=== PATIENT | male | born 1965 | race Caucasian/White ===

== ENCOUNTER 2019-02-09 11:29 | Emergency (ER) | payer MEDICARE ==
[2019-02-09 11:43] VITALS: O2SAT 98
[2019-02-09] MEDS ORDERED: Norco 10/325 MG Tablet PO ONE (11:51)
--- NOTE | 2019-02-09 12:04 | ERPHSYRPT ---
- History of Present Illness Time Seen by Provider: 02/09/19 11:52 Source: patient Exam Limitations: clinical condition Patient Subjective Stated Complaint: Pt states "I stepped wrong last night and I fell off the porch and hurt my left ankle." Triage Nursing Assessment: Pt presented to the front sitting in a wheelchair. Pt alert and oriented X 3, skin pwd. Pt left ankle swollen and tender, no other injuries or complaints noted. Physician History: PATIENT WITH A HISTORY OF HYPERTENSION, TYPE 2 DIABETES STATES HE FELL OFF PORCH AND TWISTED HIS LEFT ANKLE ASSOCIATED WITH PAIN AND SWELLING OVER OUTER ASPECT OF ANKLE, PAIN UPON WEIGHT BEARING. DENIES BRUISING OR DEFORMITY. Method of Injury: fell, twisted Occurred: yesterday Quality: constant, stabbing, throbbing Severity of Pain-Max: moderate Severity of Pain-Current: moderate Lower Extremities Pain: ankle: left Modifying Factors: Improves With: movement Associated Symptoms: unable to bear weight Allergies/Adverse Reactions: No Known Drug Allergies Allergy (Verified 02/09/19 11:43) Home Medications: Amlodipine Besylate 5 mg [Norvasc 5 mg] 5 mg PO DAILY 03/08/12 [History] Insulin Glargine,Hum.rec.anlog [Lantus] 10 units SQ HS 03/08/12 [History] Quinapril HCl 40 mg PO DAILY 03/08/12 [History] Metoprolol Tartrate 25 mg PO DAILY 02/09/19 [History] Hx Tetanus, Diphtheria Vaccination/Date Given: Yes Hx Influenza Vaccination/Date Given: No Hx Pneumococcal Vaccination/Date Given: No Immunizations Up to Date: Yes - Review of Systems Constitutional: No Symptoms Musculoskeletal: Injury, Joint Pain, Joint Swelling Skin: No Symptoms Neurological: No Symptoms Psychological: No Symptoms Hematologic/Lymphatic: No Symptoms Immunological/Allergic: No Symptoms - Past Medical History Pertinent Past Medical History: Yes Neurological History: No Pertinent History, Stroke, TIA, Other ENT History: Other Cardiac History: Other Respiratory History: No Pertinent History Endocrine Medical History: Diabetes Type I Musculoskeletal History: Fractures GI Medical History: No Pertinent History History: No Pertinent History Psycho-Social History: No Pertinent History Male Reproductive Disorders: No Pertinent History Other Medical History: leaking heart valve - Past Surgical History Past Surgical History: Yes Neuro Surgical History: No Pertinent History Cardiac: No Pertinent History Respiratory: No Pertinent History Gastrointestinal: No Pertinent History Genitourinary: No Pertinent History Musculoskeletal: No Pertinent History Male Surgical History: No Pertinent History - Social History Smoking Status: Current every day smoker How long have you smoked: 40 years Exposure to second hand smoke: Yes Drug Use: none Patient Lives Alone: No - Nursing Vital Signs Nursing Vital Signs: Initial Vital Signs Temperature 98.6 F 02/09/19 11:39 Pulse Rate 108 H 02/09/19 11:39 Respiratory Rate 20 02/09/19 11:39 Blood Pressure 166/90 02/09/19 11:39 O2 Sat by Pulse Oximetry 98 02/09/19 11:39 Pain Scale Pain Intensity 8 - Physical Exam General Appearance: no apparent distress Ankle Exam: left ankle: limited range of motion, pain, soft tissue tenderness, swelling (MODERATE LATERAL MALLEOLUS, NO DEFORMITY OR ECCHYMOSIS), other (NO LAXITY OF ANKLE MORTISE) Foot Exam: left foot: other (LEFT PEDIS PULSE 2+) SpO2: 98 - Radiology Exams Left Ankle X-ray Interpretation: Interpreted by me, Negative (no evidence of ankle fracture , calcaneal fracture) Left Other X-ray Interpretation: Interpreted by me (LEFT CALCANEAL MINIMAL DISPLACED FRACTURE) Ordered Tests: Active Orders 24 hr Category Date Time Status ANKLE (3 VIEWS) Stat Exams 02/09/19 11:52 Taken OS CALCIS XRAY Stat Exams 02/09/19 12:43 Taken Medication Summary Discontinued Medications Generic Name Dose Route Start Last Admin Trade Name Igorq PRN Reason Stop Dose Admin Hydrocodone Bitart/Acetaminophen 1 tab 02/09/19 11:51 02/09/19 12:14 [place] 10/325 Mg Tablet PO 02/09/19 11:52 1 tab STAT ONE Administration Hydrocodone Bitart/Acetaminophen Confirm 02/09/19 12:12 [place] 10/325 Mg Tablet Administered 02/09/19 12:13 Dose 1 tab .ROUTE .STK-MED ONE - Progress Progress Note: NORCO 10/325 ORALLY 02/09/19 13:17 POSTERIOR 5" X 24" LEFT SHORT LEG SPLINT WITH MARKED HEEL PADDING Counseled pt/family regarding: diagnosis, need for follow-up, rad results - Departure Departure Disposition: Home Clinical Impression: Closed left calcaneal fracture Condition: Stable Critical Care Time: No Referrals: ELIAS NIEVES MD [Primary Care Provider] - Additional Instructions: FOLLOWUP WITH [facility] AT 8AM IN 2 DAYS FOR ORTHOPEDIC EVALUATION. AMBULATE USING CRUTCHES NONWEIGHT BEARING LEFT FOOT. TAKE COPY OF XRAY DISC TO CLINIC. NORCO 10/325 EVERY 6 HOURS FOR PAIN, DISPENSED 16 TABLETS. ELEVATE FOOT AND APPLY ICE BELOW HEEL AND ABOVE ANKLE. Prescriptions: Hydrocodone/APAP 10/325 mg [[place] 10/325 MG Tablet] 1 tab PO Q6H PRN PRN # 15 tablet MDD 4 PRN Reason: Pain
[2019-02-09] MEDS ORDERED: Norco 10/325 MG Tablet ONE (12:12)
[2019-02-09 12:56] VITALS: BP 154/88; PULSE 104
--- NOTE | 2019-02-09 23:54 | XRAY ---
Indication: Pain following fall. Comparison: None 2 views of the left calcaneus demonstrates nondisplaced comminuted fracture with incidental small plantar heel spur.
--- NOTE | 2019-02-09 23:56 | XRAY ---
Indication: Pain following fall. Comparison: None 3 views of the left ankle demonstrates nondisplaced comminuted fracture with incidental small plantar heel spur and lower leg vascular calcifications. No other bony, articular, or soft tissue abnormalities.
== END 2019-02-09 13:38 | disposition home or self-care (01) ==
LOC: ED 11:29
DX: S92.002A Unspecified fracture of left calcaneus, initial encounter for closed fracture (principal); X50.1XXA Overexertion from prolonged static or awkward postures, initial encounter; Y93.89 Activity, other specified; Y92.89 Other specified places as the place of occurrence of the external cause
CPT/HCPCS: 29515; 73610; 73650; 99284; A9270-GY

== ENCOUNTER 2020-11-30 10:08 | Inpatient (IN) | payer MEDICARE ==
[2020-11-30] MEDS ORDERED: Sodium Chloride 0.9% 1000 ML 1,000 ML IV STA (10:22)
[2020-11-30 10:40] LABS: Appearance SLIGHTLY CLOUDY (CLEAR); Bilirubin NEGATIVE (NEGATIVE); Blood SMALL Ery/ul (0-5); Glucose >=500 mg/dL (NEGATIVE); Ketones MODERATE (NEGATIVE); Leukocyte Esterase NEGATIVE (NEGATIVE); Mucus SLIGHT /HPF (NEGATIVE); Nitrite NEGATIVE (NEGATIVE); Protein,Urine Dip 100 (Negative); Specific Gravity 1.022 (1.005-1.025); Urobilinogen NEGATIVE mg/dL (0-1)
[2020-11-30 10:43] LABS: Bacteria RARE /HPF (NEGATIVE); Epithelial Cells RARE /HPF (FEW); RBC 0-2 /HPF (0-2)
[2020-11-30 11:00] LABS: Absolute Neutrophil Ct (ANC) 8.85 (1.4-6.9); BASOPHIL % 0.1 % (0.0-0.4); Basophil (Absolute #) 0.01 (0-0.4); Eosinophil % 0.2 % (0.00-5.0); Eosinophil (Absolute #) 0.02 (0-0.5); Lymphocyte (Absolute #) 1.17 (1.0-4.6); Lymphocytes % 10.6 % (24.0-44.0); Mean Cell Volume 91.1 fl (78-100); Mean Corpuscular Hemoglobin 31.7 pg (26-32); Mean Corpuscular Hgb Concent. 34.8 g/dl (32-36); Mean Platelet Volume 10.2 fl (7.5-11.0); Monocyte (Absolute #) 1.01 (0.0-1.3); Monocytes % 9.1 % (0.0-12.0); Platelet Count 233 K/mm3 (150-450); Red Blood Count 5.05 M/mm3 (4.1-5.6); Red Cell Distribution Width 12.6 % (11.5-14.0); White Blood Count 11.1 K/mm3 (4.0-10.5)
[2020-11-30 11:07] LABS: ALBUMIN 4.2 g/dL (3.5-5.0); ALKALINE PHOSPHATASE 105 U/L (38-126); ANION GAP 17.1 MEQ/L (5-15); BLOOD UREA NITROGEN 29 mg/dL (9-20); CHLORIDE 94 mmol/L (98-107); Calcium 9.7 mg/dL (8.4-10.2); Carbon Dioxide 29 mmol/L (22-30); Creatinine 1 0.92 mg/dL (0.66-1.25); EST GLOMERULAR FILTRATION RATE > 60.0 ML/MIN; Glucose 277 mg/dL (74-106); LIPASE 23 U/L (23-300); Potassium 4.8 mmol/L (3.5-5.1); SGOT/AST 31 U/L (17-59); SGPT/ALT 27 U/L (0-50); SODIUM 135 mmol/L (137-145); Total Protein 7.2 g/dL (6.3-8.2)
--- NOTE | 2020-11-30 11:30 | ERPHSYRPT ---
- History of Present Illness Time Seen by Provider: 11/30/20 10:20 Source: patient Exam Limitations: no limitations Patient Subjective Stated Complaint: PT states "I have been sick since last . I have been vomiting and had diarrhea horribly." Triage Nursing Assessment: Pt presented alert and oriented X 3, skin wpd Pt ambulates with an upright steady gait, able to speak in clear full sentences pt in no apparent respiratory distress. Physician History: Patient is a 55-year-old male presents to our ED for evaluation of feeling unwell. Patient complains of nausea vomiting and diarrhea. Occasional dry cough. Symptoms started 5 days ago. Symptoms have been constant. No fevers. No trauma. Emesis nonbloody nonbilious. Symptoms are mild to moderate in intensity. No specific worsening or improving factors. Patient states he is a type I diabetic. Patient denies chest pain. No shortness of breath. No rash. No sick contacts. Patient voices no other complaints concerns at this time. Timing/Duration: day(s) (5 days ago) Severity: moderate Modifying Factors: Improves With: nothing Associated Symptoms: cough, No abdominal pain, No shortness of breath, No diaphoresis, No chills, No chest pain, No headaches, No loss of appetite, No malaise, No syncope, No seizure Allergies/Adverse Reactions: No Known Drug Allergies Allergy (Verified 02/09/19 11:43) Home Medications: Amlodipine Besylate 5 mg [Norvasc 5 mg] 5 mg PO DAILY 03/08/12 [History] Insulin Glargine,Hum.rec.anlog [Lantus] 10 units SQ HS 03/08/12 [History] Metoprolol Tartrate 25 mg PO DAILY 02/09/19 [History] Lisinopril 5 mg [Zestril 5 MG] 2.5 mg PO DAILY 11/30/20 [History] Hx Tetanus, Diphtheria Vaccination/Date Given: No Hx Influenza Vaccination/Date Given: No Hx Pneumococcal Vaccination/Date Given: No Immunizations Up to Date: Yes Travel Risk - International Travel Have you traveled outside of the country in past 3 weeks: No - Coronavirus Screening Are you exhibiting any of the following symptoms?: No Close contact with a COVID-19 positive Pt in past 14-21 Days: No - Vaccine Status Have you recieved a Covid-19 vaccination: No - Review of Systems Constitutional: No Symptoms, No Fever, No Chills Eyes: No Symptoms Ears, Nose, & Throat: No Symptoms Respiratory: No Symptoms, No Cough, No Dyspnea Cardiac: No Symptoms, No Chest Pain, No Edema, No Syncope Abdominal/Gastrointestinal: No Symptoms, No Abdominal Pain, No Nausea, No Vomiting, No Diarrhea Genitourinary Symptoms: No Symptoms, No Dysuria Musculoskeletal: No Symptoms, No Back Pain, No Neck Pain Skin: No Symptoms, No Rash Neurological: No Symptoms, No Dizziness, No Focal Weakness, No Sensory Changes Psychological: No Symptoms Endocrine: No Symptoms Hematologic/Lymphatic: No Symptoms Immunological/Allergic: No Symptoms All Other Systems: Reviewed and Negative - Past Medical History Pertinent Past Medical History: Yes Neurological History: No Pertinent History, Stroke, TIA, Other ENT History: Other Cardiac History: Other Respiratory History: No Pertinent History Endocrine Medical History: Diabetes Type I Musculoskeletal History: Fractures GI Medical History: No Pertinent History History: No Pertinent History Psycho-Social History: No Pertinent History Male Reproductive Disorders: No Pertinent History Other Medical History: leaking heart valve - Past Surgical History Past Surgical History: Yes Neuro Surgical History: No Pertinent History Cardiac: No Pertinent History Respiratory: No Pertinent History Gastrointestinal: No Pertinent History Genitourinary: No Pertinent History Musculoskeletal: No Pertinent History Male Surgical History: No Pertinent History - Social History Smoking Status: Current every day smoker How long have you smoked: years Exposure to second hand smoke: Yes Drug Use: none Patient Lives Alone: No - Nursing Vital Signs Nursing Vital Signs: Initial Vital Signs Temperature 98.2 F 11/30/20 10:12 Pulse Rate 74 11/30/20 10:12 Respiratory Rate 20 11/30/20 10:12 Blood Pressure 183/102 11/30/20 10:12 O2 Sat by Pulse Oximetry 97 11/30/20 10:12 Pain Scale Pain Intensity 3 - Physical Exam General Appearance: no apparent distress, alert Eye Exam: PERRL/EOMI, eyes nml inspection Ears, Nose, Throat Exam: normal ENT inspection, TMs normal, pharynx normal, moist mucous membranes Neck Exam: normal inspection, non-tender, supple, full range of motion Respiratory Exam: normal breath sounds, lungs clear, No respiratory distress Cardiovascular Exam: regular rate/rhythm, normal heart sounds, normal peripheral pulses Gastrointestinal/Abdomen Exam: soft, normal bowel sounds, No tenderness, No mass Back Exam: normal inspection, normal range of motion, No CVA tenderness, No vertebral tenderness Extremity Exam: normal inspection, normal range of motion, pelvis stable Neurologic Exam: alert, oriented x 3, cooperative, normal mood/affect, nml cerebellar function, nml station & gait, sensation nml, No motor deficits Skin Exam: normal color, warm, dry, No rash Lymphatic Exam: No adenopathy SpO2 Interpretation: normal SpO2: 97 O2 Delivery: Room Air - Course Nursing assessment & vital signs reviewed: Yes EKG Interpreted by Me: RATE (82), Sinus Rhythm, NORMAL AXIS, NORMAL INTERVALS - CT Exams Abdomen/Pelvis CT Interpretation: Tele-radiologist Report (No cramps currently 2 mm left proximal ureteral calculus without hydronephrosis. Hydroureter. Additional nonobstructing left renal micro normal appendectomy. Remaining abdomen pelvis negative.) Ordered Tests: Medication Summary Generic Name Dose Route Start Last Admin Trade Name Freq PRN Reason Stop Dose Admin Acetaminophen 500 mg 12/01/20 00:09 Tylenol Extra Strength 500 Mg PO 12/31/20 00:08 Q4H PRN PRN PAIN Al Hydrox/Mg Hydrox/Simethicone 30 ml 12/02/20 13:30 12/02/20 17:56 Maalox Es 30 Ml Unit Dose PO 01/01/21 13:29 30 ml PC HELLEN Administration Amlodipine Besylate 5 mg 12/01/20 10:00 12/02/20 08:30 Norvasc 5 Mg PO 12/31/20 09:59 5 mg QAM HELLEN Administration Enoxaparin Sodium 30 mg 12/01/20 10:00 12/02/20 08:30 Enoxaparin Sodium SQ 12/31/20 09:59 30 mg DAILY HELLEN Administration Remdesivir 100 mg/ Sodium 100 mls @ 100 mls/hr 12/01/20 20:00 12/02/20 22:11 Chloride IV 12/04/20 20:59 100 mls/hr Q24H HELLEN Administration Sodium Chloride 1,000 mls @ 100 mls/hr 12/01/20 11:15 12/03/20 00:13 Sodium Chloride 0.9% 1000 Ml IV 12/31/20 11:14 100 mls/hr .Q10H HELLEN Administration Insulin Glargine 12 unit 12/01/20 22:00 12/02/20 22:10 Lantus Insulin SQ 12/31/20 21:59 12 unit HS HELLEN Administration Insulin Human Lispro 0 unit 12/01/20 07:15 12/02/20 13:04 Humalog SQ 12/31/20 07:14 2 unit UD PRN Administration Lisinopril 20 mg 12/03/20 10:00 Zestril 20 Mg PO 01/02/21 09:59 DAILY HELLEN Lorazepam 1 mg 12/02/20 17:48 12/02/20 22:10 Ativan 1 Mg PO 01/01/21 17:47 1 mg Q4HPRN PRN Administration nausea/anxiety Metoclopramide HCl 10 mg 12/01/20 11:30 12/02/20 22:10 Reglan 10 Mg PO 12/31/20 11:29 10 mg ACHS HELLEN Administration Metoprolol Tartrate 25 mg 12/01/20 10:00 12/02/20 08:29 Lopressor 25mg Tab PO 12/31/20 09:59 25 mg DAILY HELLEN Administration Morphine Sulfate 4 mg 12/01/20 00:10 12/01/20 18:29 Morphine Sulfate 4 Mg Inj IV 12/06/20 00:09 4 mg Q3H PRN PRN Administration PAIN Ondansetron HCl 4 mg 12/01/20 00:05 12/01/20 17:11 Zofran 4 Mg/2 Ml Vial IV 12/31/20 00:04 4 mg Q4H PRN PRN Administration NAUSEA/VOMITING Pantoprazole Sodium 40 mg 12/01/20 10:00 12/02/20 08:30 Protonix 40mg Tablet PO 12/31/20 09:59 40 mg DAILY HELLEN Administration Discontinued Medications Generic Name Dose Route Start Last Admin Trade Name Freq PRN Reason Stop Dose Admin Al Hydrox/Mg Hydrox/Simethicone Confirm 11/30/20 16:22 Maalox Es 30 Ml Unit Dose Administered 11/30/20 16:23 Dose 30 ml .ROUTE .STK-MED ONE Sodium Chloride 1,000 mls @ 999 mls/hr 11/30/20 10:22 11/30/20 14:25 Sodium Chloride 0.9% 1000 Ml IV 11/30/20 11:22 Infused .Q1H1M STA Infusion Sodium Chloride Confirm 11/30/20 12:17 Sodium Chloride 0.9% 1000 Ml Administered 11/30/20 12:18 Dose 1,000 mls @ ud .ROUTE .STK-MED ONE Sodium Chloride Confirm 11/30/20 20:35 Sodium Chloride 0.9% 250 Ml Administered 11/30/20 20:36 Dose 250 mls @ ud IV .STK-MED ONE Remdesivir 200 mg/ Sodium 250 mls @ 125 mls/hr 11/30/20 20:44 11/30/20 20:58 Chloride IV 11/30/20 22:43 125 mls/hr ONCE ONE Administration Sodium Chloride 1,000 mls @ 200 mls/hr 12/01/20 00:15 12/01/20 19:30 Sodium Chloride 0.9% 1000 Ml IV 12/31/20 00:14 Not Given .Q5H HELLEN Insulin Glargine 10 unit 12/01/20 22:00 Lantus Insulin SQ 12/31/20 21:59 HS HELLEN Lidocaine HCl Confirm 11/30/20 16:22 Xylocaine Hcl Viscous * Administered 11/30/20 16:23 Dose 15 ml .ROUTE .STK-MED ONE Lisinopril 2.5 mg 12/01/20 10:00 12/01/20 07:00 Zestril 5 Mg PO 12/31/20 09:59 2.5 mg DAILY HELLEN Administration Lisinopril 10 mg 12/01/20 12:00 12/02/20 08:30 Zestril 10 Mg PO 12/31/20 11:59 10 mg DAILY HELLEN Administration Lisinopril 10 mg 12/02/20 11:00 12/02/20 12:08 Zestril 10 Mg PO 12/02/20 11:01 10 mg 1100 HELLEN Administration Lorazepam 2 mg 12/01/20 00:05 12/02/20 12:51 Ativan 2 Mg/1 Ml Vial IV 12/31/20 00:04 2 mg Q4H PRN PRN Administration nausea or anxiety Magnesium Hydroxide 45 ml 11/30/20 16:01 11/30/20 16:23 Gi Cocktail 45 Ml (Maalox/Lidocaine) PO 11/30/20 16:02 45 ml STAT ONE Administration Metoprolol Tartrate Confirm 12/01/20 06:57 Lopressor 50 Mg Administered 12/01/20 06:58 Dose 50 mg .ROUTE .STK-MED ONE Morphine Sulfate 4 mg 11/30/20 23:24 Morphine Sulfate 4 Mg Inj IV 12/05/20 23:23 Q4H PRN PRN PAIN Ondansetron HCl 4 mg 11/30/20 14:54 11/30/20 14:58 Zofran 4 Mg/2 Ml Vial IV 11/30/20 14:55 4 mg STAT ONE Administration Ondansetron HCl Confirm 11/30/20 14:57 Zofran 4 Mg/2 Ml Vial Administered 11/30/20 14:58 Dose 4 mg .ROUTE .STK-MED ONE Ondansetron HCl 4 mg 11/30/20 23:24 11/30/20 23:36 Zofran 4 Mg/2 Ml Vial IV 12/30/20 23:23 4 mg Q6H PRN PRN Administration NAUSEA/VOMITING Ondansetron HCl Confirm 11/30/20 23:34 Zofran 4 Mg/2 Ml Vial Administered 11/30/20 23:35 Dose 4 mg .ROUTE .STK-MED ONE Pantoprazole Sodium 40 mg 11/30/20 16:01 11/30/20 16:24 Protonix 40 Mg Iv IV 11/30/20 16:02 40 mg STAT ONE Administration Pantoprazole Sodium Confirm 11/30/20 16:24 Protonix 40 Mg Iv Administered 11/30/20 16:25 Dose 40 mg IV .STK-MED ONE Pantoprazole Sodium 40 mg 12/01/20 10:00 Protonix 40mg Tablet PO 12/31/20 09:59 Q48H HELLEN Remdesivir Confirm 11/30/20 20:35 Remdesivir Administered 11/30/20 20:36 Dose 200 mg IV .STK-MED ONE Lab/Rad Data: Laboratory Result Diagrams 12/01/20 05:35 12/01/20 05:35 Laboratory Results 12/01/20 12/01/20 12/01/20 Range/Units 09:47 05:35 05:35 WBC (4.0-10.5) K/mm3 RBC (4.1-5.6) M/mm3 Hgb (12.5-18.0) gm/dl Hct (42-50) % MCV (78-100) fl MCH (26-32) pg MCHC (32-36) g/dl RDW (11.5-14.0) % Plt Count (150-450) K/mm3 MPV (7.5-11.0) fl Gran % (36.0-66.0) % Eos # (Auto) (0-0.5) Absolute Lymphs (auto) (1.0-4.6) Absolute Monos (auto) (0.0-1.3) Lymphocytes % (24.0-44.0) % Monocytes % (0.0-12.0) % Eosinophils % (0.00-5.0) % Basophils % (0.0-0.4) % Absolute Granulocytes (1.4-6.9) Basophils # (0-0.4) D-Dimer 1359 H* (215-500) ng/mL Sodium (137-145) mmol/L Potassium (3.5-5.1) mmol/L Chloride (98-107) mmol/L Carbon Dioxide (22-30) mmol/L Anion Gap (5-15) MEQ/L BUN (9-20) mg/dL Creatinine (0.66-1.25) mg/dL Estimated GFR ML/MIN Glucose (74-106) mg/dL POC Glucometer 179 H (74 to 106) mg/dL Hemoglobin A1c (4.5-6.0) % Calcium (8.4-10.2) mg/dL Magnesium 2.2 (1.6-2.3) mg/dL Total Bilirubin (0.2-1.3) mg/dL AST (17-59) U/L ALT (0-50) U/L Alkaline Phosphatase (38-126) U/L Troponin I (0.000-0.034) ng/mL Serum Total Protein (6.3-8.2) g/dL Albumin (3.5-5.0) g/dL Lipase (23-300) U/L Urine Color (YELLOW) Urine Appearance (CLEAR) Urine pH (5-6) Ur Specific [place] (1.005-1.025) Urine Protein (Negative) Urine Ketones (NEGATIVE) Urine Blood (0-5) Popeye/ul Urine Nitrite (NEGATIVE) Urine Bilirubin (NEGATIVE) Urine Urobilinogen (0-1) mg/dL Ur Leukocyte Esterase (NEGATIVE) Urine WBC (Auto) (0-5) /HPF Urine RBC (Auto) (0-2) /HPF U Epithel Cells (Auto) (FEW) /HPF Urine Bacteria (Auto) (NEGATIVE) /HPF Urine Mucus (Auto) (NEGATIVE) /HPF Urine Culture Reflexed (NO) Urine Glucose (NEGATIVE) mg/dL Influenza Type A Ag (NEGATIVE) Influenza Type B Ag (NEGATIVE) RSV (PCR) (Negative) SARS-CoV-2 (PCR) (NEGATIVE) 12/01/20 12/01/20 12/01/20 Range/Units 05:35 05:35 05:00 WBC 8.4 (4.0-10.5) K/mm3 RBC 4.95 (4.1-5.6) M/mm3 Hgb 15.4 (12.5-18.0) gm/dl Hct 45.8 (42-50) % MCV 92.5 (78-100) fl MCH 31.1 (26-32) pg MCHC 33.6 (32-36) g/dl RDW 12.6 (11.5-14.0) % Plt Count 196 (150-450) K/mm3 MPV 10.1 (7.5-11.0) fl Gran % 70.3 H (36.0-66.0) % Eos # (Auto) 0.01 (0-0.5) Absolute Lymphs (auto) 1.34 (1.0-4.6) Absolute Monos (auto) 1.13 (0.0-1.3) Lymphocytes % 16.0 L (24.0-44.0) % Monocytes % 13.5 H (0.0-12.0) % Eosinophils % 0.1 (0.00-5.0) % Basophils % 0.1 (0.0-0.4) % Absolute Granulocytes 5.91 (1.4-6.9) Basophils # 0.01 (0-0.4) D-Dimer (215-500) ng/mL Sodium 139 (137-145) mmol/L Potassium 4.1 (3.5-5.1) mmol/L Chloride 100 (98-107) mmol/L Carbon Dioxide 32 H (22-30) mmol/L Anion Gap 11.1 (5-15) MEQ/L BUN 22 H (9-20) mg/dL Creatinine 0.94 (0.66-1.25) mg/dL Estimated GFR > 60.0 ML/MIN Glucose 174 H (74-106) mg/dL POC Glucometer (74 to 106) mg/dL Hemoglobin A1c 11.07 H (4.5-6.0) % Calcium 9.1 (8.4-10.2) mg/dL Magnesium (1.6-2.3) mg/dL Total Bilirubin 0.40 (0.2-1.3) mg/dL AST 35 (17-59) U/L ALT 27 (0-50) U/L Alkaline Phosphatase 90 (38-126) U/L Troponin I (0.000-0.034) ng/mL Serum Total Protein 6.3 (6.3-8.2) g/dL Albumin 3.7 (3.5-5.0) g/dL Lipase (23-300) U/L Urine Color (YELLOW) Urine Appearance (CLEAR) Urine pH (5-6) Ur Specific [place] (1.005-1.025) Urine Protein (Negative) Urine Ketones (NEGATIVE) Urine Blood (0-5) Popeye/ul Urine Nitrite (NEGATIVE) Urine Bilirubin (NEGATIVE) Urine Urobilinogen (0-1) mg/dL Ur Leukocyte Esterase (NEGATIVE) Urine WBC (Auto) (0-5) /HPF Urine RBC (Auto) (0-2) /HPF U Epithel Cells (Auto) (FEW) /HPF Urine Bacteria (Auto) (NEGATIVE) /HPF Urine Mucus (Auto) (NEGATIVE) /HPF Urine Culture Reflexed (NO) Urine Glucose (NEGATIVE) mg/dL Influenza Type A Ag (NEGATIVE) Influenza Type B Ag (NEGATIVE) RSV (PCR) (Negative) SARS-CoV-2 (PCR) (NEGATIVE) 12/01/20 11/30/20 11/30/20 Range/Units 00:31 19:30 18:19 WBC (4.0-10.5) K/mm3 RBC (4.1-5.6) M/mm3 Hgb (12.5-18.0) gm/dl Hct (42-50) % MCV (78-100) fl MCH (26-32) pg MCHC (32-36) g/dl RDW (11.5-14.0) % Plt Count (150-450) K/mm3 MPV (7.5-11.0) fl Gran % (36.0-66.0) % Eos # (Auto) (0-0.5) Absolute Lymphs (auto) (1.0-4.6) Absolute Monos (auto) (0.0-1.3) Lymphocytes % (24.0-44.0) % Monocytes % (0.0-12.0) % Eosinophils % (0.00-5.0) % Basophils % (0.0-0.4) % Absolute Granulocytes (1.4-6.9) Basophils # (0-0.4) D-Dimer (215-500) ng/mL Sodium (137-145) mmol/L Potassium (3.5-5.1) mmol/L Chloride (98-107) mmol/L Carbon Dioxide (22-30) mmol/L Anion Gap (5-15) MEQ/L BUN (9-20) mg/dL Creatinine (0.66-1.25) mg/dL Estimated GFR ML/MIN Glucose (74-106) mg/dL POC Glucometer 209 H (74 to 106) mg/dL Hemoglobin A1c (4.5-6.0) % Calcium (8.4-10.2) mg/dL Magnesium (1.6-2.3) mg/dL Total Bilirubin (0.2-1.3) mg/dL AST (17-59) U/L ALT (0-50) U/L Alkaline Phosphatase (38-126) U/L Troponin I < 0.012 (0.000-0.034) ng/mL Serum Total Protein (6.3-8.2) g/dL Albumin (3.5-5.0) g/dL Lipase (23-300) U/L Urine Color (YELLOW) Urine Appearance (CLEAR) Urine pH (5-6) Ur Specific [place] (1.005-1.025) Urine Protein (Negative) Urine Ketones (NEGATIVE) Urine Blood (0-5) Popeye/ul Urine Nitrite (NEGATIVE) Urine Bilirubin (NEGATIVE) Urine Urobilinogen (0-1) mg/dL Ur Leukocyte Esterase (NEGATIVE) Urine WBC (Auto) (0-5) /HPF Urine RBC (Auto) (0-2) /HPF U Epithel Cells (Auto) (FEW) /HPF Urine Bacteria (Auto) (NEGATIVE) /HPF Urine Mucus (Auto) (NEGATIVE) /HPF Urine Culture Reflexed (NO) Urine Glucose (NEGATIVE) mg/dL Influenza Type A Ag NEGATIVE (NEGATIVE) Influenza Type B Ag NEGATIVE (NEGATIVE) RSV (PCR) NEGATIVE (Negative) SARS-CoV-2 (PCR) POSITIVE A (NEGATIVE) 11/30/20 11/30/20 11/30/20 Range/Units 16:40 13:10 10:45 WBC (4.0-10.5) K/mm3 RBC (4.1-5.6) M/mm3 Hgb (12.5-18.0) gm/dl Hct (42-50) % MCV (78-100) fl MCH (26-32) pg MCHC (32-36) g/dl RDW (11.5-14.0) % Plt Count (150-450) K/mm3 MPV (7.5-11.0) fl Gran % (36.0-66.0) % Eos # (Auto) (0-0.5) Absolute Lymphs (auto) (1.0-4.6) Absolute Monos (auto) (0.0-1.3) Lymphocytes % (24.0-44.0) % Monocytes % (0.0-12.0) % Eosinophils % (0.00-5.0) % Basophils % (0.0-0.4) % Absolute Granulocytes (1.4-6.9) Basophils # (0-0.4) D-Dimer (215-500) ng/mL Sodium (137-145) mmol/L Potassium (3.5-5.1) mmol/L Chloride (98-107) mmol/L Carbon Dioxide (22-30) mmol/L Anion Gap (5-15) MEQ/L BUN (9-20) mg/dL Creatinine (0.66-1.25) mg/dL Estimated GFR ML/MIN Glucose (74-106) mg/dL POC Glucometer (74 to 106) mg/dL Hemoglobin A1c (4.5-6.0) % Calcium (8.4-10.2) mg/dL Magnesium (1.6-2.3) mg/dL Total Bilirubin (0.2-1.3) mg/dL AST (17-59) U/L ALT (0-50) U/L Alkaline Phosphatase (38-126) U/L Troponin I < 0.012 < 0.012 (0.000-0.034) ng/mL Serum Total Protein (6.3-8.2) g/dL Albumin (3.5-5.0) g/dL Lipase (23-300) U/L Urine Color (YELLOW) Urine Appearance (CLEAR) Urine pH (5-6) Ur Specific [place] (1.005-1.025) Urine Protein (Negative) Urine Ketones (NEGATIVE) Urine Blood (0-5) Popeye/ul Urine Nitrite (NEGATIVE) Urine Bilirubin (NEGATIVE) Urine Urobilinogen (0-1) mg/dL Ur Leukocyte Esterase (NEGATIVE) Urine WBC (Auto) (0-5) /HPF Urine RBC (Auto) (0-2) /HPF U Epithel Cells (Auto) (FEW) /HPF Urine Bacteria (Auto) (NEGATIVE) /HPF Urine Mucus (Auto) (NEGATIVE) /HPF Urine Culture Reflexed (NO) Urine Glucose (NEGATIVE) mg/dL Influenza Type A Ag NEGATIVE (NEGATIVE) Influenza Type B Ag NEGATIVE (NEGATIVE) RSV (PCR) (Negative) SARS-CoV-2 (PCR) (NEGATIVE) 11/30/20 11/30/20 11/30/20 Range/Units 10:45 10:45 10:45 WBC 11.1 H (4.0-10.5) K/mm3 RBC 5.05 (4.1-5.6) M/mm3 Hgb 16.0 (12.5-18.0) gm/dl Hct 46.0 (42-50) % MCV 91.1 (78-100) fl MCH 31.7 (26-32) pg MCHC 34.8 (32-36) g/dl RDW 12.6 (11.5-14.0) % Plt Count 233 (150-450) K/mm3 MPV 10.2 (7.5-11.0) fl Gran % 80.0 H (36.0-66.0) % Eos # (Auto) 0.02 (0-0.5) Absolute Lymphs (auto) 1.17 (1.0-4.6) Absolute Monos (auto) 1.01 (0.0-1.3) Lymphocytes % 10.6 L (24.0-44.0) % Monocytes % 9.1 (0.0-12.0) % Eosinophils % 0.2 (0.00-5.0) % Basophils % 0.1 (0.0-0.4) % Absolute Granulocytes 8.85 H (1.4-6.9) Basophils # 0.01 (0-0.4) D-Dimer (215-500) ng/mL Sodium 135 L (137-145) mmol/L Potassium 4.8 (3.5-5.1) mmol/L Chloride 94 L (98-107) mmol/L Carbon Dioxide 29 (22-30) mmol/L Anion Gap 17.1 H (5-15) MEQ/L BUN 29 H (9-20) mg/dL Creatinine 0.92 (0.66-1.25) mg/dL Estimated GFR > 60.0 ML/MIN Glucose 277 H (74-106) mg/dL POC Glucometer (74 to 106) mg/dL Hemoglobin A1c (4.5-6.0) % Calcium 9.7 (8.4-10.2) mg/dL Magnesium (1.6-2.3) mg/dL Total Bilirubin 0.60 (0.2-1.3) mg/dL AST 31 (17-59) U/L ALT 27 (0-50) U/L Alkaline Phosphatase 105 (38-126) U/L Troponin I < 0.012 (0.000-0.034) ng/mL Serum Total Protein 7.2 (6.3-8.2) g/dL Albumin 4.2 (3.5-5.0) g/dL Lipase 23 (23-300) U/L Urine Color (YELLOW) Urine Appearance (CLEAR) Urine pH (5-6) Ur Specific [place] (1.005-1.025) Urine Protein (Negative) Urine Ketones (NEGATIVE) Urine Blood (0-5) Popeye/ul Urine Nitrite (NEGATIVE) Urine Bilirubin (NEGATIVE) Urine Urobilinogen (0-1) mg/dL Ur Leukocyte Esterase (NEGATIVE) Urine WBC (Auto) (0-5) /HPF Urine RBC (Auto) (0-2) /HPF U Epithel Cells (Auto) (FEW) /HPF Urine Bacteria (Auto) (NEGATIVE) /HPF Urine Mucus (Auto) (NEGATIVE) /HPF Urine Culture Reflexed (NO) Urine Glucose (NEGATIVE) mg/dL Influenza Type A Ag (NEGATIVE) Influenza Type B Ag (NEGATIVE) RSV (PCR) (Negative) SARS-CoV-2 (PCR) (NEGATIVE) 11/30/20 Range/Units 10:22 WBC (4.0-10.5) K/mm3 RBC (4.1-5.6) M/mm3 Hgb (12.5-18.0) gm/dl Hct (42-50) % MCV (78-100) fl MCH (26-32) pg MCHC (32-36) g/dl RDW (11.5-14.0) % Plt Count (150-450) K/mm3 MPV (7.5-11.0) fl Gran % (36.0-66.0) % Eos # (Auto) (0-0.5) Absolute Lymphs (auto) (1.0-4.6) Absolute Monos (auto) (0.0-1.3) Lymphocytes % (24.0-44.0) % Monocytes % (0.0-12.0) % Eosinophils % (0.00-5.0) % Basophils % (0.0-0.4) % Absolute Granulocytes (1.4-6.9) Basophils # (0-0.4) D-Dimer (215-500) ng/mL Sodium (137-145) mmol/L Potassium (3.5-5.1) mmol/L Chloride (98-107) mmol/L Carbon Dioxide (22-30) mmol/L Anion Gap (5-15) MEQ/L BUN (9-20) mg/dL Creatinine (0.66-1.25) mg/dL Estimated GFR ML/MIN Glucose (74-106) mg/dL POC Glucometer (74 to 106) mg/dL Hemoglobin A1c (4.5-6.0) % Calcium (8.4-10.2) mg/dL Magnesium (1.6-2.3) mg/dL Total Bilirubin (0.2-1.3) mg/dL AST (17-59) U/L ALT (0-50) U/L Alkaline Phosphatase (38-126) U/L Troponin I (0.000-0.034) ng/mL Serum Total Protein (6.3-8.2) g/dL Albumin (3.5-5.0) g/dL Lipase (23-300) U/L Urine Color YELLOW (YELLOW) Urine Appearance SLIGHTLY CLOUDY (CLEAR) Urine pH 5.0 (5-6) Ur Specific [place] 1.022 (1.005-1.025) Urine Protein 100 (Negative) Urine Ketones MODERATE (NEGATIVE) Urine Blood SMALL (0-5) Pope[place]/ul Urine Nitrite NEGATIVE (NEGATIVE) Urine Bilirubin NEGATIVE (NEGATIVE) Urine Urobilinogen NEGATIVE (0-1) mg/dL Ur Leukocyte Esterase NEGATIVE (NEGATIVE) Urine WBC (Auto) 3-5 (0-5) /HPF Urine RBC (Auto) 0-2 (0-2) /HPF U Epithel Cells (Auto) RARE (FEW) /HPF Urine Bacteria (Auto) RARE (NEGATIVE) /HPF Urine Mucus (Auto) SLIGHT (NEGATIVE) /HPF Urine Culture Reflexed NO (NO) Urine Glucose >=500 (NEGATIVE) mg/dL Influenza Type A Ag (NEGATIVE) Influenza Type B Ag (NEGATIVE) RSV (PCR) (Negative) SARS-CoV-2 (PCR) (NEGATIVE) - Progress Progress: improved Progress Note: Patient with nausea vomiting diarrhea. Covid positive. Patient will be admitted to Dr. Rivera for further evaluation and treatment. Patient be admitted to the Covid unit. Dr. Mckeon reevaluated patient at the bedside. Plan of care discussed with patient. He agrees to admission [facility] for further evaluation and treatment. 11/30/20 19:57 12/03/20 07:20 Discussed with DrJoy: Other (Luke) Will see patient in: hospital (observation) Counseled pt/family regarding: lab results, diagnosis, rad results - Departure Departure Disposition: Home Clinical Impression: Nausea and vomiting, Dehydration, High anion gap metabolic acidosis, Hypergl ycemia, Proteinuria, COVID-19, Glucosuria, Ureteral calculus, left Condition: Stable Critical Care Time: No
[2020-11-30 11:35] LABS: INFLUENZA A NEGATIVE (NEGATIVE); INFLUENZA B NEGATIVE (NEGATIVE)
[2020-11-30] MEDS ORDERED: Sodium Chloride 0.9% 1000 ML 1,000 ML ONE (12:17)
[2020-11-30] MEDS ORDERED: Zofran 4 MG/2 ML VIAL IV ONE (14:54)
[2020-11-30] MEDS ORDERED: Zofran 4 MG/2 ML VIAL ONE ×2 (14:57→23:34)
[2020-11-30] MEDS ORDERED: GI COCKTAIL 45 ML (Maalox/Lidocaine) PO ONE (16:01)
[2020-11-30] MEDS ORDERED: PROTONIX 40 MG IV IV ONE ×2 (16:01→16:24)
[2020-11-30] MEDS ORDERED: XYLOCAINE HCl Viscous ONE (16:22)
[2020-11-30] MEDS ORDERED: MAALOX ES 30 ML UNIT DOSE ONE (16:22)
[2020-11-30 19:29] LABS: INFLUENZA A NEGATIVE (NEGATIVE); INFLUENZA B NEGATIVE (NEGATIVE); RESPIRATORY SYNCTIAL VIRUS NEGATIVE (Negative)
[2020-11-30] MEDS ORDERED: Sodium Chloride 0.9% 250 ML 250 ML IV ONE (20:35)
[2020-11-30] MEDS ORDERED: REMDESIVIR IV ONE (20:35)
[2020-11-30] MEDS ORDERED: REMDESIVIR 200 MG in Sodium Chloride 0.9% 250 ML 250 ML IV ONE (20:44)
[2020-11-30] MEDS ORDERED: Sodium Chloride 0.9% 1000 ML 1,000 ML IV SCH (23:24)
[2020-11-30] MEDS ORDERED: MORPHINE SULFATE 4 MG INJ IV PRN (23:24)
[2020-11-30] MEDS ORDERED: Zofran 4 MG/2 ML VIAL IV PRN (23:24)
[2020-12-01] MEDS ORDERED: TYLENOL EXTRA STRENGTH 500 MG PO PRN (00:09)
[2020-12-01] MEDS: Sodium Chloride 0.9% 1000 ML 1,000 ML IV SCH ×5 (00:50→22:09)
[2020-12-01] MEDS: Ativan 2 MG/1 ML VIAL IV PRN ×2 (00:50→21:56)
[2020-12-01 06:03] LABS: Absolute Neutrophil Ct (ANC) 5.91 (1.4-6.9); BASOPHIL % 0.1 % (0.0-0.4); Basophil (Absolute #) 0.01 (0-0.4); Eosinophil % 0.1 % (0.00-5.0); Eosinophil (Absolute #) 0.01 (0-0.5); Hematocrit 45.8 % (42-50); Hemoglobin 15.4 gm/dl (12.5-18.0); Lymphocyte (Absolute #) 1.34 (1.0-4.6); Mean Cell Volume 92.5 fl (78-100); Mean Corpuscular Hemoglobin 31.1 pg (26-32); Mean Corpuscular Hgb Concent. 33.6 g/dl (32-36); Mean Platelet Volume 10.1 fl (7.5-11.0); Monocyte (Absolute #) 1.13 (0.0-1.3); Monocytes % 13.5 % (0.0-12.0); Neutrophil % 70.3 % (36.0-66.0); Platelet Count 196 K/mm3 (150-450); Red Blood Count 4.95 M/mm3 (4.1-5.6); Red Cell Distribution Width 12.6 % (11.5-14.0); White Blood Count 8.4 K/mm3 (4.0-10.5)
[2020-12-01 06:34] LABS: ALBUMIN 3.7 g/dL (3.5-5.0); ALKALINE PHOSPHATASE 90 U/L (38-126); ANION GAP 11.1 MEQ/L (5-15); BLOOD UREA NITROGEN 22 mg/dL (9-20); CHLORIDE 100 mmol/L (98-107); Calcium 9.1 mg/dL (8.4-10.2); Carbon Dioxide 32 mmol/L (22-30); Creatinine 1 0.94 mg/dL (0.66-1.25); EST GLOMERULAR FILTRATION RATE > 60.0 ML/MIN; Glucose 174 mg/dL (74-106); Potassium 4.1 mmol/L (3.5-5.1); SGOT/AST 35 U/L (17-59); SGPT/ALT 27 U/L (0-50); SODIUM 139 mmol/L (137-145); Total Protein 6.3 g/dL (6.3-8.2)
[2020-12-01] MEDS ORDERED: HUMALOG SQ PRN (06:46)
[2020-12-01] MEDS ORDERED: Lopressor 50 MG ONE (06:57)
[2020-12-01] MEDS: Lopressor 25MG Tab PO SCH (06:59)
[2020-12-01] MEDS: NORVASC 5 MG PO SCH (07:00)
[2020-12-01] MEDS: Zofran 4 MG/2 ML VIAL IV PRN ×2 (08:24→17:11)
--- NOTE | 2020-12-01 09:00 | XRAY ---
Indication: Abdomen pain, nausea, and vomiting. Multiple contiguous axial images obtained through the abdomen and pelvis using 80 cc Isovue 370 contrast. Comparison: None Lung bases demonstrate tiny right middle lobe calcified granuloma. Also 9 mm and 4 mm left lower lobe noncalcified nodules possibly granulomatous as well. Mild bibasilar fibrosis/scarring. No infiltrate or effusion. Heart is not enlarged. Noncontrasted stomach and bowel loops appear nonobstructed. Normal appendix. No free fluid/air. Both kidneys enhance and excrete. Left kidney demonstrates a few nonobstructing micro-calculi, largest 3 mm inferiorly. Right upper kidney demonstrates 5 mm cortical cyst. 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 Gallbladder demonstrates tiny gallstones/gravel in the dependent portion. Tiny splenic calcified granulomas. Remaining liver, gallbladder, pancreas, spleen adrenal glands, kidneys, ureters, and bladder are unremarkable. Mild scattered aortoiliac calcifications. No AAA or pathologic retroperitoneal lymphadenopathy. Osseous structures intact. No ventral or inguinal hernias. Impression: 1. Nonobstructing left renal micro-calculi, tiny right renal cyst, and partial duplication of the right renal collecting system. 2. Tiny gallstones/gravel. Gallbladder sonogram may yield further information if clinically warranted. 3. Left lower lobe noncalcified pulmonary nodules. Findings possibly granulomatous as there is evidence for old granulomatous disease elsewhere.
[2020-12-01] MEDS: Protonix 40MG Tablet PO SCH (09:45)
[2020-12-01] MEDS: ENOXAPARIN SODIUM SQ SCH (09:45)
[2020-12-01] MEDS ORDERED: Protonix 40MG Tablet PO SCH (10:00)
[2020-12-01] MEDS ORDERED: Zestril 5 MG PO SCH (10:00)
[2020-12-01] MEDS: Reglan 10 MG PO SCH ×3 (11:31→21:54)
[2020-12-01] MEDS: Zestril 10 MG PO SCH (11:32)
--- NOTE | 2020-12-01 12:13 | XRAY ---
Indication: Short of breath. Positive Covid 19. Comparison: March 08, 2012. Portable chest remains clear again with incidental left lower lobe calcified granuloma. Heart and mediastinal structures within normal limits. Bony thorax intact again with mild osteopenia, minimal degenerative changes, old bilateral rib fractures, and old distal left clavicle fracture. Impression: Continued nonacute chest with chronic features.
[2020-12-01] MEDS: MORPHINE SULFATE 4 MG INJ IV PRN ×2 (13:52→18:29)
[2020-12-01] MEDS ORDERED: SODIUM CHLORIDE 0.9% IV SCH (19:48)
[2020-12-01] MEDS ORDERED: REMDESIVIR IV SCH (19:48)
[2020-12-01] MEDS: REMDESIVIR 100 MG in Sodium Chloride 0.9% 100 ML BAG 100 ML IV SCH (20:05)
[2020-12-01] MEDS: Lantus Insulin SQ SCH (21:54)
[2020-12-01] MEDS ORDERED: Lantus Insulin SQ SCH (22:00)
[2020-12-02] MEDS: Sodium Chloride 0.9% 1000 ML 1,000 ML IV SCH ×2 (03:55→13:53)
[2020-12-02 06:12] LABS: ANION GAP 9.9 MEQ/L (5-15); BLOOD UREA NITROGEN 15 mg/dL (9-20); CHLORIDE 101 mmol/L (98-107); Carbon Dioxide 30 mmol/L (22-30); Creatinine 1 0.81 mg/dL (0.66-1.25); EST GLOMERULAR FILTRATION RATE > 60.0 ML/MIN; SODIUM 137 mmol/L (137-145)
[2020-12-02] MEDS: Reglan 10 MG PO SCH ×4 (06:32→22:10)
[2020-12-02] MEDS: Lopressor 25MG Tab PO SCH (08:29)
[2020-12-02] MEDS: Zestril 10 MG PO SCH (08:30)
[2020-12-02] MEDS: NORVASC 5 MG PO SCH (08:30)
[2020-12-02] MEDS: Protonix 40MG Tablet PO SCH (08:30)
[2020-12-02] MEDS: ENOXAPARIN SODIUM SQ SCH (08:30)
[2020-12-02] MEDS ORDERED: Zestril 10 MG PO SCH (11:00)
--- NOTE | 2020-12-02 11:49 | HP ---
CHIEF COMPLAINT: Intractable vomiting. HISTORY OF PRESENT ILLNESS: A 55 year-old white male who has had vomiting for the last four or five days. He had a low grade fever, nonproductive cough and sometimes productive. Feels like stuff going up his swallowing pipe. He had diarrhea x1. 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 He is lightheaded on standing. He has a headache and hurts all over. He can taste food but he cannot hold anything down. He does not know of anybody with this. He has not been out of the country. He is a diabetes type I for 20 years. He denies any chest pain. He said burning in the chest. MEDICATIONS: Norvasc 5, Lantus 10 h.s., metoprolol 25, Zestril 5. ALLERGIES: NKDA. PAST MEDICAL HISTORY: Hypertension. REVIEW OF SYSTEMS: HEENT: No problems hearing or seeing. 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 CHEST: As above, short of breath on exertion. CVS: No exertional chest pain or palpitations. No heart problems. He has had hypertension several years. ABDOMEN: Continuous nausea, every time he puts something in his mouth he has to throw up. No hepatitis. CONSTITUTIONAL: No fever. No chills. Myalgia. NEUROLOGIC: The patient has had no stroke, transient ischemic attack. Loss of vision in his eye which is probably a bleed although we do not have records and he does not know. : The patient has a small kidney stone and does not bother him. SOCIAL HISTORY: He lives by himself. Smokes a pack a day, quit one day ago. He does not drink. PHYSICAL EXAMINATION: The patient is alert, orientated, pleasant but sick. VITAL SIGNS: Temperature 98F, pulse 70, respirations 22, blood pressure 183/102. O2 saturation on room air 97%. HEENT: Decreased vision/blind in the right eye. NECK: Supple without adenopathy. CHEST: Clear. CVS: No murmurs or gallops. ABDOMEN: Tender all over, normal to decreased bowel sounds. EXTREMITIES: Decreased sensation over the feet, good pulses, good color. LAB DATA AND TESTS: On admission his troponins were normal. UA was normal. White count was 11, hemoglobin 16, PLT count 233,000. Potassium 4.8, creatinine 1.1, sodium 135. SARS-CoV-2 PCR test was positive. Liver enzymes were normal. Protein was normal. His D-dimer was elevated around 900. Chest x-ray was normal. 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 He takes insulin once a day. PLAN: The patient will be rehydrated, be started on some anti-reflux medication Prevacid, Remdesivir. Decadron will be avoided due to his GI symptoms and diabetes. His blood pressure medicine will probably have to be elevated so will increase his lisinopril. We discussed the need for visual follow up due to his decreased vision and diabetes. He is to continue his home medication of Norvasc 5, insulin 10 units h.s., lisinopril 5, metoprolol 25. PROGNOSIS: Fair.
[2020-12-02] MEDS: Ativan 2 MG/1 ML VIAL IV PRN (12:51)
[2020-12-02] MEDS: MAALOX ES 30 ML UNIT DOSE PO SCH ×2 (12:51→17:56)
[2020-12-02] MEDS: HUMALOG SQ PRN (13:04)
[2020-12-02] MEDS: Ativan 1 MG PO PRN ×2 (17:56→22:10)
[2020-12-02] MEDS: Lantus Insulin SQ SCH (22:10)
[2020-12-02] MEDS: REMDESIVIR 100 MG in Sodium Chloride 0.9% 100 ML BAG 100 ML IV SCH (22:11)
[2020-12-03] MEDS: Sodium Chloride 0.9% 1000 ML 1,000 ML IV SCH ×3 (00:13→18:06)
[2020-12-03] MEDS: Reglan 10 MG PO SCH ×5 (07:39→20:48)
[2020-12-03] MEDS: MAALOX ES 30 ML UNIT DOSE PO SCH ×3 (07:39→17:31)
[2020-12-03 08:13] LABS: ANION GAP 10.4 MEQ/L (5-15); BLOOD UREA NITROGEN 12 mg/dL (9-20); CHLORIDE 100 mmol/L (98-107); Carbon Dioxide 29 mmol/L (22-30); Creatinine 1 0.84 mg/dL (0.66-1.25); EST GLOMERULAR FILTRATION RATE > 60.0 ML/MIN; Glucose 138 mg/dL (74-106); Potassium 4.1 mmol/L (3.5-5.1); SODIUM 135 mmol/L (137-145)
[2020-12-03 08:29] LABS: Risk Ratio 4.9
[2020-12-03] MEDS: Ativan 1 MG PO PRN ×3 (09:27→19:23)
[2020-12-03] MEDS: ENOXAPARIN SODIUM SQ SCH (09:27)
[2020-12-03] MEDS: NORVASC 5 MG PO SCH (09:27)
[2020-12-03] MEDS: Lopressor 25MG Tab PO SCH (09:27)
[2020-12-03] MEDS: Zestril 20 MG PO SCH (09:27)
[2020-12-03] MEDS: Protonix 40MG Tablet PO SCH (09:27)
[2020-12-03] MEDS: HUMALOG SQ PRN (11:13)
[2020-12-03] MEDS ORDERED: HYDROCODONE-ACETAMIN 10-325 MG PO PRN (17:58)
[2020-12-03] MEDS: REMDESIVIR 100 MG in Sodium Chloride 0.9% 100 ML BAG 100 ML IV SCH (19:22)
[2020-12-03] MEDS: Lantus Insulin SQ SCH (21:11)
[2020-12-03] MEDS: HYDROCODONE-ACETAMIN 10-325 MG PO PRN (21:15)
[2020-12-04] MEDS: Sodium Chloride 0.9% 1000 ML 1,000 ML IV SCH (05:30)
[2020-12-04 05:52] LABS: Hematocrit 44.8 % (42-50); Hemoglobin 15.6 gm/dl (12.5-18.0); Mean Cell Volume 90.7 fl (78-100); Mean Corpuscular Hemoglobin 31.6 pg (26-32); Mean Corpuscular Hgb Concent. 34.8 g/dl (32-36); Mean Platelet Volume 10.6 fl (7.5-11.0); Platelet Count 179 K/mm3 (150-450); Red Blood Count 4.94 M/mm3 (4.1-5.6); Red Cell Distribution Width 12.2 % (11.5-14.0); White Blood Count 5.3 K/mm3 (4.0-10.5)
[2020-12-04 06:20] LABS: ALBUMIN 3.3 g/dL (3.5-5.0); ALKALINE PHOSPHATASE 94 U/L (38-126); ANION GAP 9.8 MEQ/L (5-15); BLOOD UREA NITROGEN 12 mg/dL (9-20); CHLORIDE 100 mmol/L (98-107); Calcium 8.8 mg/dL (8.4-10.2); Carbon Dioxide 28 mmol/L (22-30); Creatinine 1 0.68 mg/dL (0.66-1.25); EST GLOMERULAR FILTRATION RATE > 60.0 ML/MIN; Glucose 234 mg/dL (74-106); Potassium 3.8 mmol/L (3.5-5.1); SGOT/AST 29 U/L (17-59); SGPT/ALT 24 U/L (0-50); SODIUM 134 mmol/L (137-145); Total Protein 5.9 g/dL (6.3-8.2)
[2020-12-04 06:48] LABS: Slide Review YES
[2020-12-04] MEDS: Reglan 10 MG PO SCH (07:37)
[2020-12-04] MEDS: HUMALOG SQ PRN (07:44)
[2020-12-04 07:46] VITALS: BP 149/79; PULSE 55; O2SAT 94
[2020-12-04] MEDS: MAALOX ES 30 ML UNIT DOSE PO SCH (09:07)
[2020-12-04] MEDS: Protonix 40MG Tablet PO SCH (09:10)
[2020-12-04] MEDS: Lopressor 25MG Tab PO SCH (09:10)
[2020-12-04] MEDS: HYDROCODONE-ACETAMIN 10-325 MG PO PRN (09:10)
[2020-12-04] MEDS: Zestril 20 MG PO SCH (09:10)
[2020-12-04] MEDS: NORVASC 5 MG PO SCH (09:10)
[2020-12-04] MEDS: ENOXAPARIN SODIUM SQ SCH (09:11)
[2020-12-04] MEDS: Ativan 1 MG PO PRN (09:13)
== END 2020-12-04 11:12 | disposition home or self-care (01) | DRG 178 ==
LOC: ED 10:08 → MED SURG 23:12 → OBSVTOIN 12-01 11:00
PROVIDERS: ADMIT Family Medicine; ATTEND Family Medicine
DX: U07.1 COVID-19 (principal); A08.39 Other viral enteritis; J40 Bronchitis, not specified as acute or chronic; K29.70 Gastritis, unspecified, without bleeding; R11.2 Nausea with vomiting, unspecified; E86.0 Dehydration; E10.9 Type 1 diabetes mellitus without complications; Z79.899 Other long term (current) drug therapy; R42 Dizziness and giddiness; R51.9 Headache, unspecified; I10 Essential (primary) hypertension; H54.7 Unspecified visual loss; Z20.828 Contact with and (suspected) exposure to other viral communicable diseases
CPT/HCPCS: 0241U; 36415; 71045; 74177; 80051; 80053; 80061; 81001; 82565; 82947; 83036; 83690; 83721; 83735; 84484; 84520; 85025; 85027; 85379; 87400; 93005; 93041; 93268; 94760; 94762; 96360; 96365; 96366; 96374; 96375; 99285; G0378; U0002; J1650; J1817; J2060; J2270; J2405; A9270-GY